=== PATIENT | male | born 1990 | race Caucasian/White ===

== ENCOUNTER 2019-09-18 10:50 | Emergency (ER) | payer OTHER, SELFPAY ==
[2019-09-18 10:52] VITALS: BP 147/120; PULSE 117; RESP 16; TEMP 37.3; O2SAT 100; BMI 28.0
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
== END 2019-09-18 12:40 | disposition home or self-care (01) ==
PROVIDERS: Emergency Provider Emergency Medicine
DX: S43.101A Unspecified dislocation of right acromioclavicular joint, initial encounter (principal); S20.211A Contusion of right front wall of thorax, initial encounter; Z72.0 Tobacco use; V43.62XA Car passenger injured in collision with other type car in traffic accident, initial encounter; Y93.I9 Activity, other involving external motion; Y92.410 Unspecified street and highway as the place of occurrence of the external cause; Y99.8 Other external cause status
CPT/HCPCS: 71101; 73030; 99283

== ENCOUNTER → 2020-04-29 | Outpatient (CLI) | payer OTHER, SELFPAY ==
[2020-04-29 18:32] VITALS: BMI 28.5
[2020-04-29 21:33] LABS: Absolute Lymphocyte Count 1.68 X10^3/uL (0.83-4.51); Absolute Neutrophil Count 2.8 X10^3/uL (2.0-7.7); Basophil# 0.03 X10^3/uL; Basophil% 0.6 % (0-1); Eosinophil# 0.12 X10^3/uL; Eosinophils% 2.3 % (0-5); Hemoglobin 14.7 g/dL (13.0-16.5); Lymphocyte # 1.68 X10^3/ul (4.0); Lymphocyte % 31.9 % (19-41); Mean Corp Hgb Conc 33.4 g/dL (32-36); Mean Corpuscular Hgb 30.2 pg (27.0-32.0); Mean Corpuscular Volume 90.3 fL (80-94); Mean Platelet Vol. 10.8 fl (6.2-12.0); Monocyte# 0.64 X10^3/uL; Monocyte% 12.2 % (0-10); NRBC Flagged by Analyzer 0 % (0-5); Neutrophil # 2.77 X10^3/uL (2.7-7.7); Neutrophil % 52.6 % (47-70); Platelet Count 234 K/mm3 (150-450); RBC Distribution Width CV 12.1 % (11.6-14.6); Red Blood Count 4.87 M/mm3 (4.6-6.2); White Blood Count 5.3 K/mm3 (4.4-11.0)
[2020-04-29 22:01] LABS: ALB/GLOB Ratio 1.3 RATIO (0.9-2.4); AST(SGOT) 23 U/L (15-37); Alanine Aminotransfer ALT/SGPT 35 U/L (16-61); Albumin, Serum 4.2 g/dL (3.2-5.0); Alkaline Phosphatase 80 U/L (45-117); Anion Gap 6 (5-15); BUN 11 mg/dL (7-18); BUN/Creat Ratio 10.2 RATIO (10-20); Calcium,Total 9.9 mg/dL (8.5-10.1); Chloride 106 mmol/L (98-107); Creatinine, Serum 1.08 mg/dL (0.70-1.30); EST Glomerular Filtration Rate 86 mL/min (>60); Est Glom Filt Rate - Afr Amer 104 mL/min (>60); Globulin 3.3 g/dL (2.2-4.2); Glucose 92 mg/dL (74-106); Potassium 3.9 mmol/L (3.5-5.1); Protein, Total 7.5 g/dL (6.4-8.2); Sodium Level 138 mmol/L (136-145); Thyroid Stim Hormone (TSH) 2.61 uIU/mL (0.358-3.74)
== END | disposition home or self-care (01) ==
LOC: OLS.AHF 21:10 → LABSPEC 04-30 08:38
PROVIDERS: Referring Provider Nurse Practitioner; Visit Provider Nurse Practitioner
DX: K21.9 Gastro-esophageal reflux disease without esophagitis (principal); R10.13 Epigastric pain
CPT/HCPCS: 80053; 84443; 85025

== ENCOUNTER 2020-05-09 10:37 | Emergency (ER) | payer OTHER, SELFPAY ==
[2020-05-09 10:37] VITALS: BP 137/85; PULSE 82; RESP 18; TEMP 36.6; O2SAT 99; BMI 28.7
--- NOTE | 2020-05-09 10:52 | CT_ITS ---
STUDY: CT ABDOMEN AND PELVIS WITHOUT CONTRAST REASON FOR EXAM: Male, 29 years old. RLQ ABD PAIN, N/V/D. RADIATION DOSAGE (If Supplied By Facility): CTDIvol = ( 7.41 ) mGy, DLP = ( 407.55 ) mGycm TECHNIQUE: Transaxial images were obtained from the dome of the diaphragm to the symphysis pubis without oral contrast, and without intravenous contrast. Sagittal and coronal images were reconstructed. Individualized dose optimization techniques were used for this CT. COMPARISON: None. FINDINGS: Mild degree of increased markings at the right lung base suggests lobar atelectasis. The visualized portions of the heart are within normal limits. Normal liver. Normal gallbladder and extrahepatic biliary system. Normal spleen. Normal pancreas. Normal bilateral adrenal glands. Normal right kidney. Normal left kidney. There is a small hiatal hernia. Normal small intestine. Normal colon. Appendicoliths are seen in the appendix. The appendix is not distended. No periappendiceal inflammatory changes seen. Normal abdominal aorta. Normal inferior vena cava. Normal retroperitoneum. Normal urinary bladder. Normal abdominal wall. Normal osseous structures. CT/Abdomen/Pelvis without Cont IMPRESSION: Appendicolith. Electronically Signed: Bry Friend, at 11:25 EDT , Service support ,
--- NOTE | 2020-05-09 10:53 | ED.DCSUM_ITS ---
- ER Visit Summary Date of Service: 05/09/20 Chief Complaint: [Abdominal pain] History of Present Illness: The patient is a 29 M [presents to the emergency department abdominal pain for the last 2 days off and on. Patient states the pain became more severe this morning. Currently rates his pain a 7 or 8 out of 10. Patient states the pain is become severe. His last bowel movement was today x2. Patient states he had diarrhea for last 6 months. Patient had one episode of vomiting today. He denies any fever. Patient complains of urinary frequency but no dysuria or hematuria. Denies blood in the stool or black tarry stools. Patient otherwise has no medical history.] Physical Examination: [HEENT-PERRLA, EOMI. Cranial nerves II through XII grossly intact. TMs clear. Mucous membranes moist. No adenopathy. Cardiovascular-regular rate and rhythm without murmur or ectopy Lungs-clear to auscultation, chest wall stable without crepitus or subcu emphysema Abdomen-normoactive bowel sounds, soft. Patient has some tenderness over the right lower quadrant with some guarding. No rebound, rigidity, peritoneal signs. Negative CVA tenderness. Extremities-intact ?4, normal range of motion, normal pulses, atraumatic Test Results: [CBC with it was normal with a normal differential. Chemistries unremarkable. Urine was normal. CT flank showed nothing acute. No evidence of appendicitis. Patient did have some appendicoliths within the appendix.] Emergency Department Course and Treatment: [IV line established on arrival. Patient was given morphine and Zofran for pain.] Treatment Plan: [As was discussed with general surgeon on-call who will follow up patient in the office. Patient actually had a visit with the surgeon via teleconference 2 days ago. Advised patient to follow-up in the office for repeat exam later this week or early next week. Patient advised to return if worsening pain, fever, vomiting, or condition should worsen anyway. Patient given a prescription for few [place] for pain.] Disposition: [Discharged home in stable condition] Impression: [Abdominal pain-etiology uncertain] This note was generated with [employer] dictation software. It may contain incorrect words, spelling, and punctuation that were not noted in review of the chart prior to signing ED Disposition - Plan for ED Patient: Referrals: Meghann Erickson NP, [facility] [Primary Care Provider] -
[2020-05-09] MEDS: Morphine 4 MG/ML Syringe IV (11:01)
[2020-05-09] MEDS: Ondansetron 4 MG/2 ML Vial IV (11:01)
[2020-05-09 11:02] LABS: Absolute Lymphocyte Count 2.03 X10^3/uL (0.83-4.51); Basophil# 0.04 X10^3/uL; Basophil% 0.6 % (0-1); Eosinophil# 0.12 X10^3/uL; Eosinophils% 1.8 % (0-5); Hematocrit 45.1 % (40-54); Hemoglobin 15.2 g/dL (13.0-16.5); Lymphocyte # 2.03 X10^3/ul (4.0); Lymphocyte % 29.8 % (19-41); Mean Corp Hgb Conc 33.7 g/dL (32-36); Mean Corpuscular Hgb 30.7 pg (27.0-32.0); Mean Corpuscular Volume 91.1 fL (80-94); Mean Platelet Vol. 10.5 fl (6.2-12.0); Monocyte# 0.59 X10^3/uL; Monocyte% 8.7 % (0-10); NRBC Flagged by Analyzer 0 % (0-5); Neutrophil % 58.7 % (47-70); Platelet Count 244 K/mm3 (150-450); RBC Distribution Width CV 12.2 % (11.6-14.6); RBC Distribution Width SD 40.1 fl (35.1-43.9); Red Blood Count 4.95 M/mm3 (4.6-6.2); White Blood Count 6.8 K/mm3 (4.4-11.0)
[2020-05-09 11:12] LABS: ALB/GLOB Ratio 1.2 RATIO (0.9-2.4); AST(SGOT) 23 U/L (15-37); Alanine Aminotransfer ALT/SGPT 42 U/L (16-61); Alkaline Phosphatase 77 U/L (45-117); Anion Gap 4 (5-15); BUN 14 mg/dL (7-18); BUN/Creat Ratio 14.3 RATIO (10-20); Calcium,Total 8.9 mg/dL (8.5-10.1); Chloride 106 mmol/L (98-107); Creatinine, Serum 0.98 mg/dL (0.70-1.30); EST Glomerular Filtration Rate 96 mL/min (>60); Est Glom Filt Rate - Afr Amer 117 mL/min (>60); Estimated Creatinine Clearance 115.87 ml/min; Globulin 3.2 g/dL (2.2-4.2); Glucose 97 mg/dL (74-106); Potassium 4.3 mmol/L (3.5-5.1); Protein, Total 7.2 g/dL (6.4-8.2); Sodium Level 136 mmol/L (136-145)
[2020-05-09] MEDS: 0.9% Normal Saline 1,000 ML 125 ML IV (11:15)
[2020-05-09 11:42] LABS: Bacteria 0 SEEN /hpf (None Seen); Color, Urine Yellow (Yellow); Glucose, Dipstick Normal (Normal); Ketone-Dipstick Negative (Negative); Leukocyte Esterase-Dipstick Negative /ul (Negative); Mucous, Urine 0 SEEN /hpf (<or=2+); Nitrite-Dipstick Negative (Negative); Occult Blood-Urine Negative /ul (Negative); Protein-Dipstick Negative (Negative); Red Blood Cells-Urine 0 SEEN /hpf (0-5); Squamous Epithelial Cells - UA 0 SEEN /hpf (0-5); Urine Bilirubin Dipstick Negative (Negative); Urine Clarity Clear (Clear); Urine Urobilinogen Normal (Normal); White Blood Cells 0 SEEN /hpf (0-5)
--- NOTE | 2020-05-09 11:57 | DCINST.ED_ITS ---
ED Disposition - Plan for ED Patient: Instructions: ED Unknown Causes of Abdominal Pain Male Prescriptions: Hydrocodone Bitart/Apap 5-325 [[place] 5MG-325MG] 1 tab PO Q4H PRN PRN 2 Days #10 tab PRN Reason: Pain Prescription Printed Referrals: Hector Roque MD [STAFF PHYSICIAN] - 1-2 Days if not improving
== END 2020-05-09 12:10 | disposition home or self-care (01) ==
PROVIDERS: Emergency Provider Emergency Medicine; PCP Nurse Practitioner
DX: R10.31 Right lower quadrant pain (principal); Z72.0 Tobacco use
CPT/HCPCS: 36415; 74176; 80053; 81001; 85025; 96361; 96374; 96375; 99281; 99284; J7030; A4216; J2405

== ENCOUNTER 2020-09-03 07:29 | Day surgery (SDC) | payer OTHER, SELFPAY ==
[2020-08-13 14:13] VITALS: BMI 28.7
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
[2020-09-03 07:58] VITALS: BP 132/90; PULSE 88; RESP 22; TEMP 36.9; O2SAT 99; BMI 28.6
[2020-09-03] MEDS: Lactated Ringers 1,000 ML 100 ML IV (08:09)
--- NOTE | 2020-09-03 08:30 | EGD_PTH ---
PATIENT: KARI ANDERSEN LOC: EN U#:[id number] AGE/SX: 29/M ROOM: RE09/03/[address]: Dr. Hector Roque MD : 1990 BED: DIS: 09/03/2020 SPEC #: [id number] RECD: 09/03/20 11:49 STATUS: JOSSIE REAlexandr #: [id number] LARISA: 09/03/20 08:[address]: Hector Roque DEPT: SURGICAL PATHOLOGY RECD BY: Anita Lozano ENTERED: 09/03/20 12:50 SP TYPE: EGD BIOPSY OT DR: Meghann Erickson, RIKIC Tissues: A - Gastric mucous membrane B - Gastric mucous membrane Procedures: Special Stain Group II Surgery Specimen Level IV Alcian Blue/PAS (control) HEADER OPERATION: EGD ([place]) PRE-OP DIAGNOSIS: GERD TISSUE SUBMITTED: A - Antrum biopsy for histo and H. pylori, B - GE junction biopsy MICROSCOPIC DIAGNOSIS A. Gastric antrum, biopsy: Mild chronic gastritis. See comment. B. Gastroesophageal junction, biopsy: Mild chronic inflammation. No evidence of goblet cell metaplasia. Focal changes of reflux. See comment. AM:amy 09/04/2020 COMMENT A. The results of immunohistochemistry for Helicobacter pylori will be reported separately ([id number]). B. Alcian blue/PAS stain with matched control supports the above diagnosis. MICROSCOPIC DESCRIPTION Slides are reviewed. GROSS DESCRIPTION A - Received in fixative is one container labeled with the patient's name and designated antrum biopsy. The specimen consists of multiple irregular fragments of light sharp soft tissue that in aggregate measure 0.5 x 0.5 x 0.1 cm. The specimen is totally submitted in one cassette. B - Received in fixative is one container labeled with the patient's name and designated GE junction biopsy. The specimen consists of multiple irregular fragments of light sharp soft tissue that in aggregate measure 1 x 0.2 x 0.1 cm. The specimen is totally submitted in one cassette. / AM:amy 09/03/20 TC:3 CPT: 44196 x2, 28362
--- NOTE | 2020-09-03 08:30 | IMM_PTH ---
PATIENT: KARI ANDERSEN LOC: EN U#:[id number] AGE/SX: 29/M ROOM: RE09/03/[address]: Dr. Hector Roque MD : 1990 BED: DIS: 09/03/2020 SPEC #: [id number] RECD: 09/03/20 14:47 STATUS: JOSSIE REAlexandr #: [id number] LARISA: 09/03/20 08:[address]: Hector Roque DEPT: IMMUNOHISTOCHEMISTRY RECD BY: Caroline Bledsoe ENTERED: 09/03/20 14:47 SP TYPE: IMMUNO OTHR DR: Meghann Erickson, LIVESTOCK FARMWORKER-C Tissues: A - Stomach, NOS Procedures: H Pylori (initial) PHYSICIAN & INSTITUTION [place] [id number] SPECIMEN INFORMATION: Tissue Source: A - Antrum biopsy Clinical Info: GERD Specimen Number: [id number] CPT code: 01712 METHODOLOGY: Deparaffinized sections of prefer/formalin-fixed tissue or PAP/DQ stained slides are incubated with monoclonal/polyclonal antibodies/oligonucleotide probes. Localization is made via biotin free immunoperoxidase method. Appropriate controls are performed and reacted as expected. Results on target cell population are indicated in the following table: RESULTS: ANTIBODY / CLONE RESULT Block A H Pylori (polyclonal) negative These tests were developed and their performance characteristics determined by [facility]. They may not have been cleared or approved by the U.S. Food and Drug Administration. The FDA has determined that such clearance or approval is not necessary. INTERPRETATION: A. Antrum, biopsy: Negative for Helicobacter pylori organisms. AM:amy 09/05/2020
[2020-09-03 08:55] VITALS: BP 132/90; PULSE 94; RESP 16; TEMP 36.2; O2SAT 98
--- NOTE | 2020-09-03 08:56 | OP.EGD_ITS ---
Patient Name: Axel Cantu Procedure Date: 09/03/2020 8:27 AM Date of : 1990 Age: 29 Procedure: Upper GI endoscopy Indications: Epigastric abdominal pain, Gastro-esophageal reflux disease Providers: Hector Roque MD Referring MD: Hector Roque MD Medicines: Monitored Anesthesia Care Patient Profile: This is a 29 year old male. Refer to note in patient chart for documentation of history and physical. Complications: No immediate complications. Procedure: Pre-Anesthesia Assessment: - Prior to the procedure, a History and Physical was performed, and patient medications and allergies were reviewed. The patient's tolerance of previous anesthesia was also reviewed. The risks and benefits of the procedure and the sedation options and risks were discussed with the patient. All questions were answered, and informed consent was obtained. Prior Anticoagulants: The patient has taken no previous anticoagulant or antiplatelet agents. After reviewing the risks and benefits, the patient was deemed in satisfactory condition to undergo the procedure. After obtaining informed consent, the endoscope was passed under direct vision. Throughout the procedure, the patient's blood pressure, pulse, and oxygen saturations were monitored continuously. The gastroscope was introduced through the mouth, and advanced to the third part of duodenum. The upper GI endoscopy was accomplished without difficulty. The patient tolerated the procedure well. Scope In: 8:46:45 AM Scope Out: 8:49:22 AM Total Procedure Duration Time 0 hours 2 minutes 37 seconds Findings: Esophagitis with no bleeding was found at the gastroesophageal junction. Biopsies were taken with a cold forceps for histology. Localized inflammation was found in the gastric antrum. Biopsies were taken with a cold forceps for Helicobacter pylori testing. The examined duodenum was normal. Impression: - Reflux esophagitis. Biopsied. - Gastritis. Biopsied. - Normal examined duodenum. Recommendation: - Await pathology results. - Discharge patient to home. - Resume previous diet. - Continue present medications. - Use Protonix (pantoprazole) 40 mg PO daily for 2 months. Procedure Code(s): --- Professional --- 92852, Esophagogastroduodenoscopy, flexible, transoral; with biopsy, single or multiple Diagnosis Code(s): --- Professional --- K21.0, Gastro-esophageal reflux disease with esophagitis K29.70, Gastritis, unspecified, without bleeding R10.13, Epigastric pain CPT copyright 2017 [employer]. All rights reserved. The codes documented in this report are preliminary and upon live hanger review may be revised to meet current compliance requirements. Hector Roque MD 09/03/2020 8:56:02 AM This report has been signed electronically. Number of Addenda: 0 Note Initiated On: 09/03/2020 8:27 AM
--- NOTE | 2020-09-03 08:56 | OP.CCLET_ITS ---
09/03/2020 Meghann Erickson NP [facility] [address] [place] [id number] Re : Upper GI endoscopy procedure for Axel Deal Dear Ms. Erickson This procedure was performed on Thursday, September 03, 2020. My impressions and recommendations are as follows: Impressions : - Reflux esophagitis. Biopsied. - Gastritis. Biopsied. - Normal examined duodenum. Recommendations : - Await pathology results. - Discharge patient to home. - Resume previous diet. - Continue present medications. - Use Protonix (pantoprazole) 40 mg PO daily for 2 months. My findings are described in the full procedure note, which is enclosed. If I can be of further assistance, please feel free to contact me at Doctor phone number(s): , Work: . Sincerely, Hector Roque MD 09/03/2020 8:56:02 AM This report has been signed electronically.
[2020-09-03 09:07] VITALS: BP 121/79; BP 132/90; PULSE 86; RESP 16; O2SAT 100
[2020-09-03 09:10] VITALS: BP 106/80; BP 132/90; PULSE 95; RESP 16; O2SAT 100
[2020-09-03 09:13] VITALS: BP 106/66; BP 132/90; PULSE 79; RESP 16; TEMP 36.3; O2SAT 100
[2020-09-03 09:23] VITALS: BP 132/90
== END 2020-09-03 09:30 | disposition home or self-care (01) ==
LOC: EN 07:30 → AC 07:31
PROVIDERS: PCP Nurse Practitioner; Referring Provider Nurse Practitioner; Visit Provider Surgery
PROC: 0DJ08ZZ Inspection of Upper Intestinal Tract, Via Natural or Artificial Opening Endoscopic (ICD-10-PCS; CPT 43235; principal; 2020-09-03 08:25)
DX: K29.50 Unspecified chronic gastritis without bleeding (principal); K21.00 Gastro-esophageal reflux disease with esophagitis, without bleeding; F17.200 Nicotine dependence, unspecified, uncomplicated; Z20.822 Contact with and (suspected) exposure to COVID-19
CPT/HCPCS: 43239; 87426; 88305; 88313; 88342; C9803; J7120

== ENCOUNTER → 2020-09-27 | Outpatient (CLI) | payer OTHER, SELFPAY ==
[2020-09-27 17:23] VITALS: BMI 29.0
[2020-09-27 22:36] LABS: Absolute Neutrophil Count 2.9 X10^3/uL (2.0-7.7); Basophil# 0.03 X10^3/uL; Basophil% 0.6 % (0-1); Eosinophils% 1.9 % (0-5); Hematocrit 43.4 % (40-54); Hemoglobin 14.2 g/dL (13.0-16.5); Lymphocyte % 33.5 % (19-41); Mean Corp Hgb Conc 32.7 g/dL (32-36); Mean Corpuscular Hgb 30.1 pg (27.0-32.0); Mean Corpuscular Volume 92.1 fL (80-94); Mean Platelet Vol. 11.1 fl (6.2-12.0); Monocyte# 0.55 X10^3/uL; Monocyte% 10.2 % (0-10); NRBC Flagged by Analyzer 0 % (0-5); Neutrophil # 2.89 X10^3/uL (2.7-7.7); Neutrophil % 53.6 % (47-70); Platelet Count 253 K/mm3 (150-450); RBC Distribution Width CV 12.4 % (11.6-14.6); RBC Distribution Width SD 42.5 fl (35.1-43.9); Red Blood Count 4.71 M/mm3 (4.6-6.2); White Blood Count 5.4 K/mm3 (4.4-11.0)
[2020-09-27 22:51] LABS: ALB/GLOB Ratio 1.4 RATIO (0.9-2.4); AST(SGOT) 19 U/L (15-37); Alanine Aminotransfer ALT/SGPT 36 U/L (16-61); Albumin, Serum 4.1 g/dL (3.2-5.0); Alkaline Phosphatase 90 U/L (45-117); Amylase 43 U/L (25-115); Anion Gap 3 (5-15); BUN 12 mg/dL (7-18); BUN/Creat Ratio 11.1 RATIO (10-20); Calcium,Total 9.1 mg/dL (8.5-10.1); Chloride 108 mmol/L (98-107); Creatinine, Serum 1.08 mg/dL (0.70-1.30); EST Glomerular Filtration Rate 86 mL/min (>60); Est Glom Filt Rate - Afr Amer 104 mL/min (>60); Glucose 89 mg/dL (74-106); Potassium 4.2 mmol/L (3.5-5.1); Protein, Total 7.1 g/dL (6.4-8.2); Sodium Level 141 mmol/L (136-145)
[2020-09-30 16:08] LABS: Endomysial Antibody IgA Negative (Negative)
[2020-09-30 19:49] LABS: Deamidated Gliadin IgA 8 units (0-19); Deamidated Gliadin IgG 2 units (0-19); Immunoglobulin A 133 mg/dL (90-386); t-Transglutaminase IgA <2 U/mL (0-3)
== END | disposition home or self-care (01) ==
PROVIDERS: PCP Nurse Practitioner; Visit Provider Nurse Practitioner
DX: K62.5 Hemorrhage of anus and rectum (principal); K21.9 Gastro-esophageal reflux disease without esophagitis; R10.13 Epigastric pain; R19.7 Diarrhea, unspecified
CPT/HCPCS: 80053; 82150; 82784; 83516; 85025; 86255

== ENCOUNTER 2020-10-25 08:32 | Day surgery (SDC) | payer OTHER, SELFPAY ==
[2020-10-16 14:18] VITALS: BMI 29.5
[2020-10-25 08:52] VITALS: BP 143/81; PULSE 76; RESP 16; TEMP 36.9; O2SAT 98; BMI 28.8
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
--- NOTE | 2020-10-25 09:45 | COLBX_PTH ---
PATIENT: KARI ANDERSEN LOC: EN U#:[id number] AGE/SX: 29/M ROOM: RE10/25/[address]: Dr. Hector Roque MD : 1990 BED: DIS: 10/25/2020 SPEC #: [id number] RECD: 10/25/20 12:12 STATUS: JOSSIE REAlexandr #: [id number] LARISA: 10/25/20 09:[address]: Hector Roque DEPT: SURGICAL PATHOLOGY RECD BY: Anita Lozano ENTERED: 10/25/20 12:35 SP TYPE: COLON BX OTHR DR: Meghann Erickson, FIRE ASSISTANT-Magen Tissues: COLON BIOPSY Procedures: Surgery Specimen Level IV HEADER OPERATION: Colonoscopy (MAC) PRE-OP DIAGNOSIS: Diarrhea, rectal bleeding TISSUE SUBMITTED: Random colon biopsy MICROSCOPIC DIAGNOSIS Colon, random biopsy: Fragments of colonic mucosa, no pathologic diagnosis. SJ:amy 10/28/2020 MICROSCOPIC DESCRIPTION Slides are reviewed. GROSS DESCRIPTION Received in fixative is one container labeled with the patient's name and designated random colon biopsy. The specimen consists of multiple irregular fragments of light sharp soft tissue that in aggregate measure 2.5 x 0.8 x 0.1 cm. The specimen is totally submitted in one cassette. / AM:amy 10/25/20 TC:4 CPT: 74891
[2020-10-25 09:55] VITALS: BP 143/81; BP 95/70; PULSE 83; RESP 16; TEMP 36.2; O2SAT 92
--- NOTE | 2020-10-25 09:57 | OP.COLON_ITS ---
Patient Name: Axel Cantu Procedure Date: 10/25/2020 9:30 AM Date of : 1990 Age: 29 Procedure: Colonoscopy Indications: Clinically significant diarrhea of unexplained origin Providers: Hector Roque MD Referring MD: Meghann Erickson NP Medicines: Monitored Anesthesia Care Patient Profile: This is a 29 year old male. Refer to note in patient chart for documentation of history and physical. Last Colonoscopy: none. The patient's first colonoscopy is today. Complications: No immediate complications. Estimated blood loss: Minimal. Procedure: Pre-Anesthesia Assessment: - Prior to the procedure, a History and Physical was performed, and patient medications and allergies were reviewed. The patient's tolerance of previous anesthesia was also reviewed. The risks and benefits of the procedure and the sedation options and risks were discussed with the patient. All questions were answered, and informed consent was obtained. Prior Anticoagulants: The patient has taken no previous anticoagulant or antiplatelet agents. After reviewing the risks and benefits, the patient was deemed in satisfactory condition to undergo the procedure. After I obtained informed consent, the scope was passed under direct vision. Throughout the procedure, the patient's blood pressure, pulse, and oxygen saturations were monitored continuously. The Colonoscope was introduced through the anus and advanced to the cecum, identified by appendiceal orifice and ileocecal valve. The colonoscopy was performed without difficulty. The patient tolerated the procedure well. The quality of the bowel preparation was good. Scope In: 9:38:17 AM Scope Withdrawal Time 0 hours 6 minutes 48 seconds Scope Out: 9:51:35 AM Total Procedure Duration Time 0 hours 13 minutes 18 seconds Findings: The entire examined colon appeared normal on direct and retroflexion views. Biopsies for histology were taken with a cold forceps from the entire colon for evaluation of microscopic colitis. Impression: - The entire examined colon is normal on direct and retroflexion views. - Biopsies were taken with a cold forceps from the entire colon for evaluation of microscopic colitis. Recommendation: - Discharge patient to home. - Resume previous diet. - Continue present medications. - Await pathology results. - Repeat colonoscopy at age 51 for screening purposes. Procedure Code(s): --- Professional --- 25583, Colonoscopy, flexible; with biopsy, single or multiple Diagnosis Code(s): --- Professional --- R19.7, Diarrhea, unspecified CPT copyright 2017 [employer]. All rights reserved. The codes documented in this report are preliminary and upon lifestyle consultant review may be revised to meet current compliance requirements. Hector Roque MD 10/25/2020 9:57:25 AM This report has been signed electronically. Number of Addenda: 0 Note Initiated On: 10/25/2020 9:30 AM
--- NOTE | 2020-10-25 09:58 | OP.CCLET_ITS ---
10/25/2020 Meghann Erickson NP [facility] [address] [place] [id number] Re : Colonoscopy procedure for Axel Deal Dear Ms. Erickson This procedure was performed on Sunday, October 25, 2020. My impressions and recommendations are as follows: Impressions : - The entire examined colon is normal on direct and retroflexion views. - Biopsies were taken with a cold forceps from the entire colon for evaluation of microscopic colitis. Recommendations : - Discharge patient to home. - Resume previous diet. - Continue present medications. - Await pathology results. - Repeat colonoscopy at age 51 for screening purposes. My findings are described in the full procedure note, which is enclosed. If I can be of further assistance, please feel free to contact me at Doctor phone number(s): , Work: . Sincerely, Hector Roque MD 10/25/2020 9:57:25 AM This report has been signed electronically.
[2020-10-25 10:00] VITALS: BP 143/81; BP 95/65; PULSE 75; RESP 16; O2SAT 74
[2020-10-25 10:05] VITALS: BP 143/81; BP 99/62; PULSE 74; RESP 16; O2SAT 93
[2020-10-25 10:10] VITALS: BP 110/70; BP 143/81; PULSE 71; RESP 16; TEMP 36.1; O2SAT 93
[2020-10-25 10:26] VITALS: BP 143/81
== END 2020-10-25 10:27 | disposition home or self-care (01) ==
LOC: EN 08:32 → AC 08:32
PROVIDERS: PCP Nurse Practitioner; Referring Provider Nurse Practitioner; Visit Provider Surgery
PROC: 0DJD8ZZ Inspection of Lower Intestinal Tract, Via Natural or Artificial Opening Endoscopic (ICD-10-PCS; CPT 45378; principal; 2020-10-25 09:40)
DX: R19.7 Diarrhea, unspecified (principal); K21.9 Gastro-esophageal reflux disease without esophagitis; F17.200 Nicotine dependence, unspecified, uncomplicated; Z20.822 Contact with and (suspected) exposure to COVID-19
CPT/HCPCS: 45380; 87426; 88305; C9803; J7120; J2405